=== PATIENT | female | born 1965 | race Hispanic/Latino ===

== ENCOUNTER 2024-06-16 06:30 | Observation (INO) | payer BC ==
[~2024-06-16] VITALS: Ht 152.4 cm; Wt 80.7 kg
[2024-06-16] VITALS (8 sets, daily range): BP systolic 115–141; BP diastolic 76–78; PULSE 53–77; RESP 17–19; TEMP 98.1–98.5; O2SAT 97–100
[2024-06-16] MEDS ORDERED: SODIUM CHLORIDE FLUSH 10 ML SYR IV PRN (07:00)
[2024-06-16 07:11] LABS: BASOPHILS % 0.4 % (0.0-1.0); EOSINOPHILS % 0.3 % (0.0-6.0); HEMATOCRIT 40.5 % (34.2-44.1); HEMOGLOBIN 13.4 g/dL (12.0-16.0); LYMPHOCYTES # (AUTO) 1.8 (1.0-3.2); LYMPHOCYTES % 24.1 % (18.0-39.1); MEAN CORPUSCULAR HEMOGLOBIN 29.7 pg (28-32); MEAN CORPUSCULAR HGB CONC 33.1 g/dL (31-35); MEAN CORPUSCULAR VOLUME 89.8 fL (81-99); MONOCYTES # (AUTO) 0.2 (0.2-0.8); MONOCYTES % 2.8 % (4.4-11.3); NEUTROPHILS # (AUTO) 5.4 (2.1-6.9); NEUTROPHILS % 72.1 % (38.7-80.0); PLATELET COUNT 269 x10e3/uL (140-360); RED BLOOD COUNT 4.51 x10e6/uL (3.6-5.1); RED CELL DISTRIBUTION WIDTH 12.9 % (11.7-14.4); WHITE BLOOD COUNT 7.48 x10e3/uL (4.8-10.8)
[2024-06-16 07:33] LABS: ALANINE AMINOTRANSFERASE 12 IU/L (0-55); ALBUMIN 4.3 g/dL (3.5-5.0); ALBUMIN/GLOBULIN RATIO 1.2 (0.8-2.0); ALKALINE PHOSPHATASE 85 IU/L (40-150); ANION GAP 16.2 mmol/L (8-16); BLOOD UREA NITROGEN 14 mg/dL (7-26); BUN/CREATININE RATIO 18 (6-25); CALCIUM 9.6 mg/dL (8.4-10.2); CARBON DIOXIDE 22 mmol/L (22-29); CHLORIDE 107 mmol/L (98-107); CREATININE, SERUM 0.77 mg/dL (0.57-1.11); EST GLOMERULAR FILTRATION RATE 89 ML/MIN (>=60); GLUCOSE 141 mg/dL (74-118); POTASSIUM 4.2 mmol/L (3.5-5.1); SODIUM 141 mmol/L (136-145)
[2024-06-16 07:40] LABS: TROPONIN I < 0.001 ng/mL (0-0.300)
[2024-06-16 07:51] LABS: BILIRUBIN,TOTAL 0.5 mg/dL (0.2-1.2)
[2024-06-16 10:26] LABS: BILIRUBIN,URINE NEGATIVE (NEGATIVE); CLARITY,URINE CLEAR (CLEAR); COLOR,URINE YELLOW (YELLOW); GLUCOSE, URINE NEGATIVE (NEGATIVE); KETONES,URINE NEGATIVE (NEGATIVE); LEUKOCYTE ESTERASE ,URINE NEGATIVE (NEGATIVE); NITRITE,URINE NEGATIVE (NEGATIVE); PH,URINE 5.5 (5 - 7); PROTEIN,URINE DIPSTICK NEGATIVE (NEGATIVE); URINE UROBILINOGEN 0.2 mg/dL (0.2 - 1)
[2024-06-16 10:37] LABS: BACTERIA,URINE FEW /HPF; EPITHELIAL CELLS,URINE RARE /LPF; RBC,URINE 0-5 /HPF (0-5); TRANSITIONAL EPI CELLS,URINE RARE; WBC,URINE (MAN) 0-5 /HPF (0-5)
[2024-06-16] MEDS: ASPIRIN 81 MG CHEW TAB PO ONE ×2 (11:05→13:17)
[2024-06-16] MEDS ORDERED: ONDANSETRON HCL INJ 2MG/ML 2ML 2 MG/ML VIAL IV PRN (11:15)
[2024-06-16] MEDS ORDERED: SODIUM CHLORIDE FLUSH 10 ML SYR INJ PRN (11:15)
[2024-06-16] MEDS ORDERED: PANTOPRAZOLE SO40 MG (14:45)
[2024-06-16] MEDS ORDERED: LOPRESSOR25 MG PO (14:45)
[2024-06-16] MEDS ORDERED: ATORVASTATIN CA20 MG PO (14:45)
[2024-06-16] MEDS ORDERED: LISINOPRIL40 MG PO (14:45)
[2024-06-16 16:15] LABS: CREATINE KINASE 40 IU/L (29-168)
[2024-06-16 16:22] LABS: TROPONIN I < 0.001 ng/mL (0-0.300)
[2024-06-17] VITALS (8 sets, daily range): BP systolic 111–131; BP diastolic 57–80; PULSE 68–88; RESP 17–20; TEMP 97.5–98.5; O2SAT 96–100
[2024-06-17 05:33] LABS: BASOPHILS % 0.5 % (0.0-1.0); EOSINOPHILS # (AUTO) 0.1 (0.0-0.4); EOSINOPHILS % 0.9 % (0.0-6.0); HEMATOCRIT 39.3 % (34.2-44.1); HEMOGLOBIN 12.7 g/dL (12.0-16.0); LYMPHOCYTES # (AUTO) 3.2 (1.0-3.2); LYMPHOCYTES % 41.2 % (18.0-39.1); MEAN CORPUSCULAR HEMOGLOBIN 29.5 pg (28-32); MEAN CORPUSCULAR HGB CONC 32.3 g/dL (31-35); MEAN CORPUSCULAR VOLUME 91.4 fL (81-99); MONOCYTES # (AUTO) 0.4 (0.2-0.8); MONOCYTES % 4.7 % (4.4-11.3); NEUTROPHILS # (AUTO) 4.1 (2.1-6.9); NEUTROPHILS % 52.3 % (38.7-80.0); PLATELET COUNT 249 x10e3/uL (140-360); RED CELL DISTRIBUTION WIDTH 13.2 % (11.7-14.4); WHITE BLOOD COUNT 7.86 x10e3/uL (4.8-10.8)
[2024-06-17 06:06] LABS: ALBUMIN/GLOBULIN RATIO 1.3 (0.8-2.0); ANION GAP 14.1 mmol/L (8-16); BILIRUBIN,TOTAL 0.6 mg/dL (0.2-1.2); CALCIUM 9.6 mg/dL (8.4-10.2); CREATININE, SERUM 0.72 mg/dL (0.57-1.11); POTASSIUM 4.1 mmol/L (3.5-5.1); TOTAL PROTEIN 7.2 g/dL (6.5-8.1)
[2024-06-17 06:34] LABS: CREATINE KINASE 44 IU/L (29-168)
[2024-06-17 06:43] LABS: TROPONIN I < 0.001 ng/mL (0-0.300)
[2024-06-17] MEDS: PANTOPRAZOLE SOD 40 MG TABEC PO SCH (08:36)
[2024-06-17] MEDS: METOPROLOL TARTRATE 25 MG TAB PO SCH (17:00)
[2024-06-17] MEDS: ATORVASTATIN 20 MG TAB PO SCH (21:09)
[2024-06-18] VITALS: BP 118/75; PULSE 61; RESP 20; TEMP 97.8; O2SAT 99
[2024-06-18 04:00] VITALS: BP 125/78; PULSE 62; RESP 20; TEMP 97.8; O2SAT 100
[2024-06-18 05:37] LABS: BASOPHILS % 0.5 % (0.0-1.0); EOSINOPHILS # (AUTO) 0.1 (0.0-0.4); EOSINOPHILS % 1.1 % (0.0-6.0); HEMATOCRIT 40.1 % (34.2-44.1); HEMOGLOBIN 13.2 g/dL (12.0-16.0); LYMPHOCYTES # (AUTO) 3.3 (1.0-3.2); LYMPHOCYTES % 41.9 % (18.0-39.1); MEAN CORPUSCULAR HEMOGLOBIN 29.9 pg (28-32); MEAN CORPUSCULAR HGB CONC 32.9 g/dL (31-35); MEAN CORPUSCULAR VOLUME 90.7 fL (81-99); MONOCYTES # (AUTO) 0.4 (0.2-0.8); MONOCYTES % 4.4 % (4.4-11.3); NEUTROPHILS # (AUTO) 4.1 (2.1-6.9); NEUTROPHILS % 51.7 % (38.7-80.0); PLATELET COUNT 267 x10e3/uL (140-360); RED BLOOD COUNT 4.42 x10e6/uL (3.6-5.1); RED CELL DISTRIBUTION WIDTH 12.8 % (11.7-14.4); WHITE BLOOD COUNT 7.92 x10e3/uL (4.8-10.8)
[2024-06-18 06:12] LABS: ALBUMIN 3.9 g/dL (3.5-5.0); ALBUMIN/GLOBULIN RATIO 1.1 (0.8-2.0); CHOL/HDL RATIO 3.3 (3.0-3.6); CREATININE, SERUM 0.74 mg/dL (0.57-1.11); TOTAL PROTEIN 7.5 g/dL (6.5-8.1)
[2024-06-18 06:27] LABS: BILIRUBIN,TOTAL 0.6 mg/dL (0.2-1.2); POTASSIUM 3.9 mmol/L (3.5-5.1)
[2024-06-18 07:49] VITALS: BP 127/71; PULSE 70; RESP 19; TEMP 97.9; O2SAT 96
[2024-06-18 08:20] LABS: ANION GAP 18.9 mmol/L (8-16)
[2024-06-18 08:44] LABS: THYROID STIMULATING HORMONE 1.428 uIU/mL (0.350-4.940)
== END 2024-06-18 10:25 | disposition home or self-care (01) ==
LOC: ER 06:45 → ERHOLD 11:08 → MED/SURG2 14:26
PROVIDERS: ADMIT Internal Medicine; ATTEND Internal Medicine
DX: R42 Dizziness and giddiness (principal); R07.89 Other chest pain; I10 Essential (primary) hypertension; E78.00 Pure hypercholesterolemia, unspecified; K21.9 Gastro-esophageal reflux disease without esophagitis; M54.6 Pain in thoracic spine; M54.50 Low back pain, unspecified; I07.1 Rheumatic tricuspid insufficiency; M19.91 Primary osteoarthritis, unspecified site; Z11.52 Encounter for screening for COVID-19; Z79.899 Other long term (current) drug therapy
CPT/HCPCS: 36415 ×2; 70450; 71046; 80053 ×2; 81001; 82550 ×2; 83880; 84484 ×2; 85025 ×2; 93005; 93306; 93880; 99284; S0164; U0002; 80061; 84443; G0378

== ENCOUNTER 2025-06-29 17:00 | Outpatient (RCR) | payer BC ==
[~2025-06-29 17:00] MED LIST: ATORVASTATIN CA20 MG PO; LISINOPRIL40 MG PO; LOPRESSOR25 MG PO; PANTOPRAZOLE SO40 MG
== END 2025-07-01 ==
LOC: PT 17:00
PROVIDERS: ATTEND Student in an Organized Health Care Education/Training Program
DX: M54.6 Pain in thoracic spine (principal)

== ENCOUNTER 2025-07-30 15:00 | Outpatient (RCR) | payer BC, OTHER | END 2025-08-01 | LOC: PT 15:00 | PROVIDERS: ATTEND Student in an Organized Health Care Education/Training Program | DX: M54.6 Pain in thoracic spine (principal) ==

== ENCOUNTER 2025-08-27 09:00 | Outpatient (RCR) | payer OTHER | END 2025-08-31 | LOC: PT 09:00 | PROVIDERS: ATTEND Student in an Organized Health Care Education/Training Program | DX: M54.6 Pain in thoracic spine (principal) ==